=== PATIENT | male | born 1935 | race Caucasian/White ===

== ENCOUNTER → 2017-09-03 | Outpatient (CLI) | payer OTHER, MEDICARE ==
[~2017-09-03] MED LIST: ACCUPRIL20 MG PO; ALKA-SELTZER P1 EAC7 PO; ASPIR 8181 M1 PO; PLAVIX75 MG PO; PRAVACHOL20 MG PO; TOPROL XL50 MG PO; TRICOR145 MG PO
== END | disposition home or self-care (01) ==
LOC: NUC 09:46
DX: R97.21 Rising PSA following treatment for malignant neoplasm of prostate (principal); M47.898 Other spondylosis, sacral and sacrococcygeal region; M17.12 Unilateral primary osteoarthritis, left knee; Z95.0 Presence of cardiac pacemaker
CPT/HCPCS: 78306; A9503

== ENCOUNTER 2017-10-18 06:42 | Day surgery (SDC) | payer OTHER, MEDICARE ==
[~2017-10-18] VITALS: Ht 165.1 cm; Wt 77.1 kg
[~2017-10-18 06:42] MED LIST changes: +COZAAR50 MG PO; +PROAIR HFA8.5 GM IH
[2017-10-18 07:19] VITALS: BP 139/81
[2017-10-18 11:14] VITALS: BP 129/85
[2017-10-18 12:20] VITALS: BP 133/74
[2017-10-18 12:56] VITALS: BP 1238/85
== END 2017-10-18 12:59 | disposition home or self-care (01) ==
LOC: SDC 06:42
DX: N20.1 Calculus of ureter (principal); C61 Malignant neoplasm of prostate; J44.9 Chronic obstructive pulmonary disease, unspecified; I25.2 Old myocardial infarction; I10 Essential (primary) hypertension; I69.351 Hemiplegia and hemiparesis following cerebral infarction affecting right dominant side; Z95.0 Presence of cardiac pacemaker; Z95.1 Presence of aortocoronary bypass graft; Z79.82 Long term (current) use of aspirin; Z79.02 Long term (current) use of antithrombotics/antiplatelets; Z87.891 Personal history of nicotine dependence
CPT/HCPCS: 74018; 76000; C1769; C2625; J0131; J1100; J1580; J2405; J2710; J3010; J7050; J7643

== ENCOUNTER 2017-11-08 17:14 | Inpatient (IN) | payer OTHER, MEDICARE ==
[~2017-11-08] VITALS: Ht 167.6 cm; Wt 73.6 kg
[2017-11-08 18:15] LABS: APPEARANCE CLOUDY ((CLEAR)); BILIRUBIN NEGATIVE; BLOOD LARGE; COLOR YELLOW ((YELLOW)); GLUCOSE (STRIP) NEGATIVE; KETONES NEGATIVE; LEUKOCYTES LARGE; NITRITE NEGATIVE; PROTEIN (STRIP) 100; SPECIFIC GRAVITY 1.013 (1.000-1.030); UROBILINOGEN 0.2 MG/DL (0.2-1.0)
[2017-11-08 18:20] LABS: BASOPHIL (%) 0.2 % (0-1); EOSINOPHIL (%) 0.2 % (0-5); HEMATOCRIT 44.5 % (38.0-50.0); HEMOGLOBIN 15.5 G/DL (12.5-16.6); IMMATURE GRANULOCYTE (%) 0.4 % (0.0-0.7); LYMPHOCYTE COUNT 0.9 K/uL (1.0-2.8); MCH 29.3 PG (29.0-34.0); MCHC 34.8 G/DL (30.0-36.0); MCV 84.1 FL (86-99); MONOCYTE (%) 9.3 % (3-12); MONOCYTE COUNT 0.8 K/uL (0-0.8); NEUTROPHIL (%) 78.9 % (45-76); NEUTROPHIL COUNT 6.5 K/uL (1.8-6.4); PLATELET COUNT 135 K/uL (156-360); RBC DIS.WIDTH-CV 13.4 % (11.8-14.6); RBC DIS.WIDTH-SD 41.4 % (39-53); RED BLOOD COUNT 5.29 M/uL (4.00-5.50); WHITE BLOOD COUNT 8.2 K/uL (4.1-10.2)
[2017-11-08 18:31] LABS: CHLORIDE 102 mEq/L (99-109); POTASSIUM 4.4 mEq/L (3.7-5.4); SODIUM 131 mEq/L (136-147)
[2017-11-08 18:33] LABS: GLUCOSE 109 mg/dL (70-99)
[2017-11-08 18:37] LABS: CREATININE 1.6 mg/dL (0.6-1.3); GFR ESTIMATE (CALCULATED) 44 mL/min/ (58.99-99999)
[2017-11-08 18:38] LABS: UREA NITROGEN (BUN) 41 mg/dL (9-23)
[2017-11-08 18:40] LABS: BACTERIA 4+ /HPF; EPITHELIAL CELLS NONE SEEN /HPF; MUCUS NONE SEEN /LPF; RED BLOOD CELLS TNTC /HPF (0-5); UCUL ADDED? YES; WHITE BLOOD CELLS TNTC /HPF (0-5)
[2017-11-08 18:47] LABS: INTER. NORMALIZED RATIO 1.2
[2017-11-08 18:50] LABS: PTT 33.5 SEC (25-37)
[2017-11-08] MEDS ORDERED: FLOMAX0.4 MG PO (18:53)
[2017-11-08] MEDS ORDERED: ADVIL200 MG PO (18:53)
[2017-11-08 21:38] LABS: ALBUMIN 3.6 g/dL (3.2-4.8)
[2017-11-08 21:42] LABS: TOTAL PROTEIN 7.8 g/dL (6.4-8.3)
[2017-11-08 21:43] LABS: TOTAL BILIRUBIN 1.1 mg/dL (0.0-1.0)
[2017-11-08 21:44] LABS: ALKALINE PHOSPHATASE 116 IU/L (3-129)
[2017-11-08 21:47] LABS: ALT (GPT) 18 IU/L (3-49); AST (GOT) 43 IU/L (2-34); DIRECT BILIRUBIN 0.6 mg/dL (0.0-0.3)
[2017-11-08 21:48] LABS: LIPASE 127 U/L (1.0-51.0)
[2017-11-08 22:15] VITALS: BP 181/89
[2017-11-09] VITALS (7 sets, daily range): BP systolic 94–136; BP diastolic 52–63
[2017-11-09 05:46] LABS: BASOPHIL (%) 0.1 % (0-1); EOSINOPHIL (%) 0 % (0-5); HEMATOCRIT 37.9 % (38.0-50.0); IMMATURE GRANULOCYTE (%) 0.4 % (0.0-0.7); LYMPHOCYTE COUNT 0.4 K/uL (1.0-2.8); MCH 28.3 PG (29.0-34.0); MCHC 33.2 G/DL (30.0-36.0); MCV 85.2 FL (86-99); MONOCYTE (%) 8.2 % (3-12); MONOCYTE COUNT 0.7 K/uL (0-0.8); NEUTROPHIL (%) 87.3 % (45-76); NEUTROPHIL COUNT 7.9 K/uL (1.8-6.4); RBC DIS.WIDTH-CV 13.4 % (11.8-14.6); RBC DIS.WIDTH-SD 41.7 % (39-53); RED BLOOD COUNT 4.45 M/uL (4.00-5.50); WHITE BLOOD COUNT 9.1 K/uL (4.1-10.2)
[2017-11-09 05:50] LABS: HEMOGLOBIN 12.6 G/DL (12.5-16.6)
[2017-11-09 05:59] LABS: ALBUMIN 2.6 G/DL (3.2-4.8); ALKALINE PHOSPHATASE 71 IU/L (3-129); ALT (GPT) 12 IU/L (3-49); AST (GOT) 29 IU/L (2-34); CHLORIDE 106 MEQ/L (99-109); CREATININE 1.5 MG/DL (0.6-1.3); GFR ESTIMATE (CALCULATED) 48 mL/min/ (58.99-99999); GLUCOSE 122 mg/dL (70-99); SODIUM 133 MEQ/L (136-147); TOTAL BILIRUBIN 0.9 MG/DL (0.0-1.0); TOTAL PROTEIN 5.6 G/DL (6.4-8.3); UREA NITROGEN (BUN) 33 mg/dL (9-23)
[2017-11-09 06:00] LABS: PLAT.SUFFICIENCY DECREASED
[2017-11-09 06:16] LABS: PLATELET COUNT 94 K/uL (156-360)
[2017-11-10 03:00] VITALS: BP 133/64
[2017-11-10 09:15] LABS: BASOPHIL (%) 0.2 % (0-1); EOSINOPHIL COUNT 0.1 K/uL (0-0.3); HEMATOCRIT 38.9 % (38.0-50.0); IMMATURE GRANULOCYTE (%) 0.2 % (0.0-0.7); LYMPHOCYTE (%) 11.4 % (15-42); LYMPHOCYTE COUNT 0.6 K/uL (1.0-2.8); MCHC 33.4 G/DL (30.0-36.0); MCV 86.6 FL (86-99); MONOCYTE (%) 9.4 % (3-12); MONOCYTE COUNT 0.5 K/uL (0-0.8); NEUTROPHIL (%) 77.8 % (45-76); NEUTROPHIL COUNT 3.9 K/uL (1.8-6.4); PLATELET COUNT 93 K/uL (156-360); RBC DIS.WIDTH-CV 13.8 % (11.8-14.6); RBC DIS.WIDTH-SD 43.7 % (39-53); RED BLOOD COUNT 4.49 M/uL (4.00-5.50)
[2017-11-10 09:38] VITALS: BP 155/72
[2017-11-10 09:38] LABS: CHLORIDE 106 MEQ/L (99-109); CREATININE 1.1 MG/DL (0.6-1.3); GFR ESTIMATE (CALCULATED) > 59 mL/min/ (58.99-99999); GLUCOSE 98 mg/dL (70-99); POTASSIUM 4.1 MEQ/L (3.7-5.4); SODIUM 134 MEQ/L (136-147); UREA NITROGEN (BUN) 26 mg/dL (9-23)
[2017-11-10 12:19] VITALS: BP 123/66
[2017-11-10 15:18] VITALS: BP 138/65
[2017-11-10 16:53] VITALS: BP 158/72
[2017-11-10 20:22] VITALS: BP 158/76
[2017-11-11 00:14] VITALS: BP 159/78
[2017-11-11 04:31] VITALS: BP 143/67
[2017-11-11 07:59] VITALS: BP 156/78
[2017-11-11 09:00] LABS: HEMATOCRIT 41.2 % (38.0-50.0); HEMOGLOBIN 13.8 G/DL (12.5-16.6); MCH 28.4 PG (29.0-34.0); MCHC 33.5 G/DL (30.0-36.0); MCV 84.8 FL (86-99); PLATELET COUNT 97 K/uL (156-360); RBC DIS.WIDTH-CV 13.5 % (11.8-14.6); RBC DIS.WIDTH-SD 42.3 % (39-53); RED BLOOD COUNT 4.86 M/uL (4.00-5.50); WHITE BLOOD COUNT 3.6 K/uL (4.1-10.2)
[2017-11-11 09:24] LABS: CHLORIDE 104 MEQ/L (99-109); CREATININE 1.1 MG/DL (0.6-1.3); GFR ESTIMATE (CALCULATED) > 59 mL/min/ (58.99-99999); GLUCOSE 109 mg/dL (70-99); POTASSIUM 4.5 MEQ/L (3.7-5.4); SODIUM 135 MEQ/L (136-147); UREA NITROGEN (BUN) 18 mg/dL (9-23)
[2017-11-11 13:57] VITALS: BP 124/74
[2017-11-11 15:39] VITALS: BP 148/63
[2017-11-11 20:48] VITALS: BP 163/83
[2017-11-12 00:30] VITALS: BP 150/76
[2017-11-12 03:33] VITALS: BP 126/66
[2017-11-12 07:19] VITALS: BP 172/76
[2017-11-12 15:03] VITALS: BP 125/68
[2017-11-12] MEDS ORDERED: CIPRO250 MG PO (15:59)
== END 2017-11-12 17:20 | disposition home or self-care (01) | DRG 871 ==
LOC: EME 17:14 → 4EAST 21:08 → EDOF 21:08 → ENRESERV 21:17 → 4EAST 22:12 → ENRESERV 11-10 11:55 → 5SOUTH 11-10 14:18 → ENPENDDIS 11-12 16:33 → 5SOUTH 11-12 17:20
PROVIDERS: Emergency Medicine; Internal Medicine
DX: A41.59 Other Gram-negative sepsis (principal); N13.6 Pyonephrosis; B96.1 Klebsiella pneumoniae [K. pneumoniae] as the cause of diseases classified elsewhere; J18.0 Bronchopneumonia, unspecified organism; E87.1 Hypo-osmolality and hyponatremia; R16.0 Hepatomegaly, not elsewhere classified; J43.9 Emphysema, unspecified; E11.22 Type 2 diabetes mellitus with diabetic chronic kidney disease; I12.9 Hypertensive chronic kidney disease with stage 1 through stage 4 chronic kidney disease, or unspecified chronic kidney disease; N18.3 Chronic kidney disease, stage 3 (moderate); E78.5 Hyperlipidemia, unspecified; I25.10 Atherosclerotic heart disease of native coronary artery without angina pectoris; N40.1 Benign prostatic hyperplasia with lower urinary tract symptoms; R33.8 Other retention of urine; Y95 Nosocomial condition; I69.320 Aphasia following cerebral infarction; I69.359 Hemiplegia and hemiparesis following cerebral infarction affecting unspecified side; I25.2 Old myocardial infarction; Z95.1 Presence of aortocoronary bypass graft; Z95.5 Presence of coronary angioplasty implant and graft; Z95.0 Presence of cardiac pacemaker; Z85.46 Personal history of malignant neoplasm of prostate; Z87.891 Personal history of nicotine dependence; Z79.82 Long term (current) use of aspirin; Z79.02 Long term (current) use of antithrombotics/antiplatelets
CPT/HCPCS: 71045; 71250; 74176; 74177; 76705; 80048; 80053; 80076; 81003; 83605; 83690; 85025; 85027; 85610; 85730; 87040; 87070; 87077; 87086 GA; 87186; 87205; 87449; 87801; 92610 GN; 94640; 94640 76; 94760; 94799; 99202; 99281; 99285; A6214; J0456; J0692; J1644; J2543; J3370; J7030; J7050